=== PATIENT | male | born 1960 | race Caucasian/White ===

== ENCOUNTER 2020-09-19 19:08 | Emergency (ER) | payer OTHER ==
[~2020-09-19] VITALS: Ht 175.3 cm; Wt 118.4 kg
[2020-09-19] MEDS: CASIRIVIMAB/IMDEVIMAB 10 ML in SODIUM CHLORIDE 0.9% 100 ML IV ONE (20:23)
[2020-09-19] MEDS ORDERED: CASIRIVIMAB/IMDEVIMAB 10 ML in SODIUM CHLORIDE 0.9% 100 ML IV ONE (20:30)
== END 2020-09-19 22:10 | disposition home or self-care (01) ==
LOC: ER 20:15
DX: U07.1 COVID-19 (principal); R19.7 Diarrhea, unspecified; R05 Cough
CPT/HCPCS: 99283